=== PATIENT | male | born 2000 | race Two or more races ===

== ENCOUNTER 2020-11-08 16:21 | Emergency (ER) | payer SELFPAY ==
[~2020-11-08] VITALS: Ht 185.4 cm; Wt 81.6 kg
[2020-11-08 17:00] VITALS: BP 139/72
[2020-11-08] MEDS ORDERED: LIDOCAINE 1% HCL (LOCAL ANESTH.) INJ 20ML MDV IJ ONE (17:00)
== END 2020-11-08 17:41 | disposition home or self-care (01) ==
LOC: ER 16:21
DX: S02.2XXB Fracture of nasal bones, initial encounter for open fracture (principal); W26.8XXA Contact with other sharp object(s), not elsewhere classified, initial encounter; W18.39XA Other fall on same level, initial encounter; Y93.89 Activity, other specified; Y92.89 Other specified places as the place of occurrence of the external cause; Y99.8 Other external cause status
CPT/HCPCS: 12011; 99283; J2001